=== PATIENT | male | born 1965 | race Caucasian/White ===

== ENCOUNTER 2019-04-22 10:55 | Emergency (ER) | payer BC, OTHER ==
[~2019-04-22] VITALS: Ht 198.1 cm; Wt 165.0 kg
[~2019-04-22 10:55] MED LIST: ALBU18HF2 IH; FAMO-1 PO; OMEG-79 PO
[2019-04-22 12:18] LABS: BASOPHILS # (AUTO) 0.1 X10'3 (0-0.2); BASOPHILS % (AUTO) 0.8 % (0-1); EOSINOPHILS # (AUTO) 0.4 X10'3 (0-0.9); EOSINOPHILS % (AUTO) 4.4 % (0-6); HEMATOCRIT 49.1 % (42.0-52.0); HEMOGLOBIN 16.7 g/dl (14.0-17.9); LYMPHOCYTES # (AUTO) 1.5 X10'3 (1.1-4.8); LYMPHOCYTES % (AUTO) 16.2 % (21-51); MEAN CORPUSCULAR HEMOGLOBIN 32.9 PG (27.0-31.0); MEAN CORPUSCULAR VOLUME 96.7 FL (78-98); MEAN PLATELET VOLUME 8.9 FL (7.4-10.4); MONOCYTES % (AUTO) 11.2 % (2-12); NEUTROPHILS # (AUTO) 6.1 X10'3 (1.8-7.7); NEUTROPHILS % (AUTO) 67.4 % (42-75); PLATELET COUNT 219 X10'3 (140-440); RED BLOOD COUNT 5.07 X10'6 (4.70-6.10); RED CELL DISTRIBUTION WIDTH 13.2 % (11.5-14.5)
[2019-04-22 12:32] LABS: ALANINE AMINOTRANSFERASE 65 U/L (12-78); ALBUMIN 3.5 G/DL (3.4-5.0); ALBUMIN/GLOBULIN RATIO 0.9 (1.1-1.5); ALKALINE PHOSPHATASE 97 IU/L (46-116); ANION GAP 9 (8-16); ASPARTATE AMINO TRANSFERASE 17 U/L (10-37); BILIRUBIN,TOTAL 0.8 MG/DL (0.1-1.0); BLOOD UREA NITROGEN 10 MG/DL (7-18); BUN/CREATININE RATIO 9.6 (5.4-32.0); CALCIUM 8.6 MG/DL (8.5-10.1); CHLORIDE 100 MMOL/L (99-107); CREATININE 1.04 MG/DL (0.60-1.10); GLUCOSE 139 MG/DL (70-104); SODIUM 137 MMOL/L (135-145); TOTAL CARBON DIOXIDE 28.3 MMOL/L (24-32); TOTAL PROTEIN 7.3 G/DL (6.4-8.2); eGFR 75 ML/MIN
[2019-04-22] MEDS ORDERED: CefTRIAXone 1000mg IM Kit (w/lidocaine diluent) IM ONE (12:35)
[2019-04-22] MEDS ORDERED: CEPH250T PO (12:43)
[2019-04-22] MEDS ORDERED: BACI28.42 TOP (12:59)
[2019-04-22 13:04] VITALS: BP 163/83
== END 2019-04-22 13:10 | disposition home or self-care (01) ==
LOC: ER 10:56
DX: L03.115 Cellulitis of right lower limb (principal); I10 Essential (primary) hypertension; G89.29 Other chronic pain; F12.90 Cannabis use, unspecified, uncomplicated; Z98.890 Other specified postprocedural states; Z79.899 Other long term (current) drug therapy
CPT/HCPCS: 36415; 80053; 84145; 85025; 93971; 96372; 99284; J0696

== ENCOUNTER 2019-04-24 08:10 | Emergency (ER) | payer BC ==
[~2019-04-24] VITALS: Ht 198.1 cm; Wt 162.9 kg
[~2019-04-24 08:10] MED LIST changes: +BACI28.42 TOP; +CEPH250T PO
[2019-04-24 08:13] VITALS: BP 166/98
[2019-04-24] MEDS ORDERED: CefTRIAXone 1000mg IM Kit (w/lidocaine diluent) IM ONE (08:35)
== END 2019-04-24 09:06 | disposition home or self-care (01) ==
LOC: ER 08:10
DX: S80.811D Abrasion, right lower leg, subsequent encounter (principal); L03.115 Cellulitis of right lower limb; I10 Essential (primary) hypertension; G89.29 Other chronic pain; F12.90 Cannabis use, unspecified, uncomplicated; Z98.890 Other specified postprocedural states; Z79.899 Other long term (current) drug therapy; X58.XXXD Exposure to other specified factors, subsequent encounter
CPT/HCPCS: 96372; 99283; J0696